=== PATIENT | male | born 1945 | race Caucasian/White ===

== ENCOUNTER → 2020-05-08 12:53 | Outpatient (CLI) | payer MEDICARE, SELFPAY ==
--- NOTE | 2020-05-08 | IMM_PTH ---
PATIENT: ALEJANDRO LYON LOC: [facility] U#:[id number] AGE/SX: 79/M ROOM: RE05/08/[address]: Dr. Carlos White MD : 1945 BED: DIS: SPEC #: [id number] RECD: 05/09/20 12:27 STATUS: CASSANDRA REQ #: [id number] MITESH: 05/08/20 00:[address]: Carlos White DEPT: IMMUNOHISTOCHEMISTRY RECD BY: Tanika Holland ENTERED: 05/09/20 12:28 SP TYPE: IMMUNO OTHR DR: Dr. Marvin Kirk MD Tissues: A - PROSTATE RIGHT B - PROSTATE RIGHT D - PROSTATE LEFT Procedures: 34BE12 (add) P40 (add) 34BE12 (initial) PHYSICIAN & INSTITUTION [place] [id number] SPECIMEN INFORMATION: Tissue Source: A - Right prostate, apex, B - Right prostate, mid, D - Left prostate, apex Clinical Info: Elevated PSA Specimen Number: [id number] A, B & D CPT code: 26079, 85673 x5 METHODOLOGY: Deparaffinized sections of prefer/formalin-fixed tissue or PAP/DQ stained slides are incubated with monoclonal/polyclonal antibodies/oligonucleotide probes. Localization is made via biotin free immunoperoxidase method. Appropriate controls are performed and reacted as expected. Results on target cell population are indicated in the following table: RESULTS: ANTIBODY / CLONE RESULT Block A 34BE12 (34BE12) positive P40 (BC28) positive Block B 34BE12 (34BE12) negative P40 (BC28) negative Block D 34BE12 (34BE12) negative P40 (BC28) negative These tests were developed and their performance characteristics determined by [facility]. They may not have been cleared or approved by the U.S. Food and Drug Administration. The FDA has determined that such clearance or approval is not necessary. The above immunohistochemical/dualISH markers are ordered and reviewed by the Pathologist. INTERPRETATION: A. Right prostate, apex, core biopsy: Benign prostatic tissue. B. Right prostate, mid, core biopsy: Adenocarcinoma. D. Left prostate, apex, core biopsy: Adenocarcinoma. AM:angelica 05/10/2020
--- NOTE | 2020-05-08 08:00 | PROSBIL_PTH ---
PATIENT: ALEJANDRO LYON LOC: [facility] U#:[id number] AGE/SX: 79/M ROOM: RE05/08/[address]: Dr. Carlos White MD : 1945 BED: DIS: SPEC #: [id number] RECD: 05/08/20 12:39 STATUS: CASSANDRA REAshley #: [id number] MITESH: 05/08/20 08:[address]: Carlos White DEPT: SURGICAL PATHOLOGY RECD BY: Moira Servin ENTERED: 05/08/20 13:14 SP TYPE: PROST BX LINDA DR: Dr. Marvin Kirk MD Tissues: A - PROSTATE RIGHT B - PROSTATE RIGHT C - PROSTATE RIGHT D - PROSTATE LEFT E - PROSTATE LEFT F - PROSTATE LEFT Procedures: PROSTATE BX HEADER OPERATION: Prostate biopsy PRE-OP DIAGNOSIS: Elevated PSA TISSUE SUBMITTED: A - Right apex, B - Right mid, C - Right base, D - Left apex, E - Left mid, F - Left base MICROSCOPIC DIAGNOSIS A. Right prostate, apex, core biopsy: Benign prostatic tissue. See comment. B. Right prostate, mid, core biopsy: Adenocarcinoma. Francoise grade: 6 (3+3) Cores involved: 1 out of 2 cores Tissue involved: 1% Greatest tumor length: 1 mm See comment. C. Right prostate, base, core biopsy: Benign prostatic tissue. D. Left prostate, apex, core biopsy: Adenocarcinoma. Kake grade: 7 (3+4) Cores involved: 1 out of 1 core Tissue involved: 30% Greatest tumor length: 2.5 mm See comment. E. Left prostate, mid, core biopsy: Benign prostatic tissue. F. Left prostate, base, core biopsy: Benign prostatic tissue. AM:angelica 05/09/2020 COMMENT A, B & D - Immunohistochemistry ([id number]) supports the above diagnosis. MICROSCOPIC DESCRIPTION Slides are reviewed. GROSS DESCRIPTION A - Received is one container designated prostate, right apex. The specimen consists of one elongated fragment of light ozuna-white soft tissue measuring 1.5 cm in length and 0.1 cm in diameter. The specimen is totally submitted in one cassette. B - Received is one container designated prostate, right mid. The specimen consists of two elongated fragments of light ozuna-white soft tissue each measuring 1 cm in length and 0.1 cm in diameter. The specimen is totally submitted in one cassette. C - Received is one container designated prostate, right base. The specimen consists of two elongated fragments of light ozuna-white soft tissue each measuring 1 cm in length and 0.1 cm in diameter. The specimen is totally submitted in one cassette. D - Received is one container designated prostate, left apex. The specimen consists of one elongated fragment of light ozuna-white soft tissue measuring 1 cm in length and 0.1 cm in diameter. The specimen is totally submitted in one cassette. E - Received is one container designated prostate, left mid. The specimen consists of two elongated fragments of light ozuna-white soft tissue each measuring 1 cm in length and 0.1 cm in diameter. The specimen is totally submitted in one cassette. F - Received is one container designated prostate, left base. The specimen consists of two elongated fragments of light ozuna-white soft tissue each measuring 1.5 cm in length and 0.1 cm in diameter. The specimen is totally submitted in one cassette. / AM:angelica 05/08/20 TC:0 CPT: G0146
== END ==
PROVIDERS: PCP Family Medicine; Referring Provider Urology; Visit Provider Urology
DX: R97.20 Elevated prostate specific antigen [PSA] (principal)
CPT/HCPCS: 88305; 88341; 88342; G0416

== ENCOUNTER 2021-01-30 05:42 | Day surgery (SDC) | payer MEDICARE, SELFPAY ==
--- NOTE | 2021-01-28 10:05 | EKG12_ITS ---
Test Reason : PREOP Blood Pressure : / mmHG Vent. Rate : 075 BPM Atrial Rate : 075 BPM P-R Int : 168 ms QRS Dur : 098 ms QT Int : 404 ms P-R-T Axes : 001 032 054 degrees QTc Int : 451 ms Normal sinus rhythm Normal ECG Confirmed by MITA CHI, DUYEN ([id number]), legal editor ILYA STRATOTN ([id number]) on 01/29/2021 10:04:05 AM Referred By: Carlos White Confirmed By:DUYEN AFN MD
[2021-01-28 10:42] LABS: Hematocrit 43.4 % (40-54); Mean Corp Hgb Conc 34.6 g/dL (32-36); Mean Corpuscular Hgb 29.8 pg (27.0-32.0); Mean Corpuscular Volume 86.3 fL (80-94); Mean Platelet Vol. 10.3 fl (6.2-12.0); Platelet Count 169 K/mm3 (150-450); RBC Distribution Width CV 12.4 % (11.6-14.6); Red Blood Count 5.03 M/mm3 (4.6-6.2); White Blood Count 4.8 K/mm3 (4.4-11.0)
[2021-01-28 11:24] LABS: Anion Gap 5 (5-15); BUN 12 mg/dL (7-18); BUN/Creat Ratio 11.8 RATIO (10-20); Calcium,Total 9.3 mg/dL (8.5-10.1); Chloride 114 mmol/L (98-107); Creatinine, Serum 1.02 mg/dL (0.70-1.30); EST Glomerular Filtration Rate 75 mL/min (>60); Est Glom Filt Rate - Afr Amer 91 mL/min (>60); Glucose 87 mg/dL (74-106); Potassium 4.2 mmol/L (3.5-5.1); Sodium Level 143 mmol/L (136-145)
[2021-01-30] VITALS (17 sets, daily range): BP systolic 121–154; BP diastolic 62–98; PULSE 67–94; RESP 16–18; TEMP 36.1–36.9; O2SAT 92–100; BMI 29.4
[2021-01-30] MEDS: Lactated Ringers 1,000 ML 15 ML IV (06:40)
--- NOTE | 2021-01-30 07:30 | PROST_PTH ---
PATIENT: ALEJANDRO LYON LOC: [facility] [place] U#:[id number] AGE/SX: 75/M ROOM: RE01/30/[address]: Dr. Carlos White MD : 1945 BED: DIS: 01/31/2021 SPEC #: [id number] RECD: 01/30/21 13:01 STATUS: CASSANDRA REAshley #: [id number] MITESH: 01/30/21 07:[address]: Carlos White DEPT: SURGICAL PATHOLOGY RECD BY: Moira Servin ENTERED: 01/31/21 09:19 SP TYPE: PROSTATE OTHR DR: MD Dr. Marvin Pat MD Tissues: A - Soft tissues, NOS B - Lymph node, NOS C - Lymph node, NOS D - Prostate, NOS Procedures: Surgery Specimen Level IV Surgery Specimen Level HEADER OPERATION: Lap robotic radical prostatectomy, nerve monitoring PRE-OP DIAGNOSIS: Prostate cancer TISSUE SUBMITTED: A ? Fat over prostate, B ? Left pelvic lymph node, C ? Right pelvic lymph node, D - Prostate MICROSCOPIC DIAGNOSIS A. Fat over prostate, biopsy: Mature adipose tissue. No evidence of malignancy. B. Left pelvic lymph node, regional lymphadnectomy: One out of one lymph node negative for carcinoma. C. Right pelvic lymph nodes, regional lymphadnectomy: Two out of two lymph nodes negative for carcinoma. D. Prostate, radical prostatectomy: Adenocarcinoma. See cancer synoptic report below. AM:angelica 02/01/2021 COMMENT SYNOPTIC REPORT Procedure: Radical Prostatectomy Prostate Size: 4.4 x 4 x 3 cm Histologic Type: Adenocarcinoma Histologic Grade: 7 Percent of Pattern 4: 25% Percent of Pattern 5: 0% Intraductal Carcinoma: Not identified Tumor Quantitation: 3.5 x 1.9 x 1.7 cm Extraprostatic Extension: Focally suspected Urinary Bladder Neck Invasion: Not identified Seminal Vesicle Invasion: Not identified Lymphvascular Invasion: Not identified Perineural Invasion: Focally present Margins: Free of carcinoma Regional Lymph Nodes: Number of lymph nodes involved by carcinoma: 0 Total number of lymph nodes examined: 3 See specimens A and B. Treatment Effect: Unknown Additional Pathologic Findings: High-grade prostatic intraepithelial neoplasia, chronic inflammation with focal acute inflammation. PATHOLOGIC STAGE: pT2 N0 Mx The above summary is in compliance with [employer] (CAP) Cancer Protocols Checklist and [place] [employer] on Cancer (AJCC), Staging Manual, 8th Ed. Reference is made to the patient's prostate biopsies ([id number]) in which adenocarcinoma was identified. MICROSCOPIC DESCRIPTION Slides are reviewed. GROSS DESCRIPTION A - Received in fixative is one container labeled with the patient's name and designated fat over prostate. The specimen consists of multiple irregular fragments of yellow fatty tissue that in aggregate measure 4.6 x 4.5 x 1 cm. Serial sections do not reveal mass lesions. [facility] Cutter sections are submitted in one cassette. B - Received in fixative is one container labeled with the patient's name and designated left pelvic lymph?node. The specimen consists of an irregular fragment of yellow fatty tissue measuring 4 x 2 x 1 cm. Dissection reveals a single ozuna nodule measuring 2.5 cm in greatest dimension. The nodule is serially sectioned and submitted in cassette 1. The remainder of the tissue is submitted in its entirety in cassette 2. C - Received in fixative is one container labeled with the patient's name and designated right pelvic lymph nodes. The specimen consists of multiple irregular fragments of ozuna-yellow fibrofatty tissue ranging in size from 1 to 5 cm. Serial sections reveal two nodules ranging in size from 0.5 to 2.5 cm. The nodules are submitted in their entirety in cassette 1. The remainder of the specimen is submitted in cassette 2. D - Received in fixative is one container labeled with the patient's name and designated prostate. The specimen consists of prostate with attached right and left seminal vesicles and vas deferens. The specimen measures 7 x 4 x 3 cm. The prostate gland in particular measures 4.5 cm craniocaudally, 4 cm transversely and 3 cm anterior-posteriorly. The specimen weighs 38.7 gm. The prostate is differentially inked as follows: anterior - red, posterior - black, right half - blue, left half - green. The prostate gland is cut from apex to base at approximately 3-4 mm sections. No distinct mass lesion is identified. Pav[facility] Cutter sections are submitted as follows: 1 ? apex, shave, 2 - bladder neck shave, 3 & 4 ? right and left seminal vesicles, 4 & 5 ? most basal section of prostate, 6 & 7 ?apex, 8-13 - mid portion of prostate, 14-170 - basal portion of prostate. Approximately 99% of the tissue is submitted for microscopic evaluation. / AM:angelica 01/31/21 TC:0 CPT: 55098 x3, 21721
--- NOTE | 2021-01-30 07:35 | PCM.HP.STD ---
HPI - General HPI Narrative ALEJANDRO LYON, is a 75 M who presents with a radical prostatectomy history of frequency urgency incontinence and prostate cancer we plan to proceed with a radical robotic prostatectomy suspension of the urethra and organ to do nerve monitoring during the case to spare the nerves as best as possible for his bladder control will take out the lymph nodes as well. FORMERLY [facility], [facility] Medical History (Updated 01/30/21 @ 07:[address] Carlos White MD) Arthritis Cancer Former smoker Gastric reflux High cholesterol History of diverticulitis History of renal disease History of stress test History of trauma Hypertension Prostate disease Restless legs Wears glasses Wears hearing aid Wears partial dentures Home Medications levothyroxine 150 mcg PO DAILY 01/25/21 [History Last Taken 01/30/21 03:15] losartan 100 mg PO DAILY 01/25/21 [History Last Taken 01/30/21 03:15] lovastatin 40 mg PO DAILY 01/25/21 [History Last Taken 01/29/21] omeprazole 40 mg PO DAILY 01/25/21 [History Last Taken 01/29/21] ciprofloxacin HCl [Cipro] 500 mg PO BID #20 tab 01/30/21 [Rx Last Taken Unknown] oxycodone-acetaminophen 1 tab PO Q6H PRN 7 Days #14 tab 01/30/21 [Rx Last Taken Unknown] Allergy/AdvReac Type Severity Reaction Status Date / Time No Known Allergies Allergy Verified 01/30/21 06:11 Family History (Updated 01/30/21 @ 07:[address] Carlos White MD) Other Prostate disease Surgical History (Updated 01/25/21 @ 13:00 by Jacqueline Hayes) History of appendectomy History of arthroscopy of knee History of cardiac catheterization History of thyroidectomy Social History Smoking Status: Former smoker Vital Signs Vital Signs Vital Signs: 01/30/21 06:14 01/30/21 06:16 Temperature 97.7 F L Temperature Source Temporal Pulse Rate 73 Respiratory Rate 18 Respiratory Pattern Normal Blood Pressure 122/75 H Blood Pressure Mean 90 Blood Pressure Source Monitor Blood Pressure Position Semi-Fowlers Blood Pressure Location Right Arm Pulse Ox 100 Oxygen Delivery Method Room Air Weight Weight: 93 kg Body Mass Index (BMI) 29.4 Results Lab / Micro Data Result Diagrams: 01/28/21 09:47 01/28/21 09:47
--- NOTE | 2021-01-30 07:37 | DCINST_ITS ---
Discharge Instructions Diet Discharge Diet: Light diet - advance as tolerated and Soft diet Activity Discharge Activity: May Not Drive (while taking narcotic pain medications.) Lifting Restrictions: No Lifting at all Additional Activity Instructions:: okay to shower Dressing / Incision Call your doctor if you observe: Fever of 101 or Higher Catheter: Manley to leg bag and Manley to large bag Drain: [place] Follow Up Care Please Follow Up With: Carlos White MD When: Call [phone] for an appointment Test Results: Test results from this visit will be discussed in further detail at your follow-up appointment, if applicable. Discharge Plan Admission Primary Reason for Your Visit: Radical Prostatectomy Attending Provider: Carlos White Primary Care Provider: Marvin Kirk Consulting Providers: Mark Parks Discharge Orders/Prescriptions Prescriptions: New ciprofloxacin HCl [Cipro] 500 mg tablet 500 mg PO BID Qty: 20 RF: 0 oxycodone-acetaminophen 5-325 mg tablet 1 tab PO Q6H PRN (Reason: pain) 7 Days Qty: 14 RF: 0 Continued lovastatin 40 mg tablet 40 mg PO DAILY RF: 0 omeprazole 40 mg capsule,delayed release(DR/EC) 40 mg PO DAILY RF: 0 levothyroxine 150 mcg tablet 150 mcg PO DAILY RF: 0 losartan 100 mg tablet 100 mg PO DAILY RF: 0 Discontinued tamsulosin 0.4 mg capsule 0.4 mg PO DAILY RF: 0 finasteride 5 mg tablet 5 mg PO DAILY RF: 0 Other Ambulatory Orders: 12 Lead EKG (Routine) Timeframe: 20210128 Location: None Selected Ordered By: Dr. Mark Parks Referrals / Follow Up: Carlos White MD [STAFF PHYSICIAN] - Marvin Kirk MD [Primary Care Provider] - Disposition Disposition (needs filled in before D/C Order can be placed): Home, Self Care
[2021-01-30] MEDS: Cefazolin 2 GM in 0.9% Normal Saline 100 ML IV (07:38)
[2021-01-30] MEDS: Bupivacaine Mpf 0.5% 30 ML VIAL (08:40)
--- NOTE | 2021-01-30 11:34 | PCM.OPRPT ---
Report of Operation Date of Procedure: 01/30/21 Pre-Operative Diagnosis: Prostate cancer, frequency and urgency, stress incontinence Post-Operative Diagnosis: Same Surgery/Procedure Performed:: Laparoscopic robotic assisted radical prostatectomy, bilateral pelvic lymph node dissection complete, EMG monitoring of the urethral sphincter and pelvic nerves, suture suspension of the urethra. Description of Surgical Findings:: Patient was taken back to the operating room after smooth induction of general anesthesia he was placed in dorsolithotomy position. The urethra and abdomen were prepped and draped in usual sterile fashion. He had a prior lower appendix incision had a incision above the umbilicus I made a small little incision next the umbilicus the abdomen was prepped and draped, I then used a Veress needle to enter the peritoneal cavity and filled the peritoneal Cavity with CO2 gas. I then placed a 8 mm camera trocar into the umbilicus I placed the right camera trocar into left trochars for the robotic arm we then placed an air seal port and a 5 mm suction port. The robot was then docked we are using the X I da Freda robot, then proceeded with the initial dissection I freed up some adhesions from her prior surgery in the left lower quadrant and right lower quadrant released the colon off the lateral wall I was then able to retract the colon out of the pelvis I then went down below the bladder and incised the peritoneum followed the vas deferens on the right side all the way down to the prostate Tisit dissected out the right vas deferens and right seminal vesicle, then dissected out the left vas deferens and left seminal vesicles I then began he go below the prostate and dissected out the space below the prostate to the apex I then pulled out of the pelvis we then dropped the bladder and opened up the space of Retzius used a fourth arm to retract the bladder I then went to the right side and the pelvic lymph nodes were identified in the obturator space we identified the lateral wall the iliac artery and vessel the pelvic sidewall the clerk operator nerve and then all the lymphatic tissue in that space was then completely dissected out we used generous clips to control bleeding the lymphatic tissue was and lymph nodes were sent off as a specimen, I then went to the left side performed a left complete lymph node dissection on the left side dissected out the lymph nodes off the lateral sidewall off the left iliac artery and vein and clerk operator nerve was identified again after dissecting all the lymph nodes off this side then we went to the prostate incised the endopelvic fascia retracted prostate laterally freed up the prostate from the endopelvic fascia laterally on the right side and the left side I then went to the apex we placed stitch in the dorsal vein complex we then came back to the bladder neck and incised open the bladder from the prostate dissecting down to the urethra the balloon was then deflated and the urethra and then we dissected below the prostate I then retracted the prostate laterally incised the fascia on top of the prostate sweeping off the fascia and then sweeping and identifying the neurovascular bundle we then used the EMG electrode this was introduced into the abdomen using the kit and the electrode was then placed in the lateral pelvic wall region then checked for action potential stimulation we identify the exponential stimulation identified the nerve track along the lateral wall of the pelvis from the deep pelvis did narrow pelvis once the tract was identified then we continue with the dissection on the right side we released the neurovascular bundles we took the pedicles with clips we elevated the prostate off the neurovascular bundle we again were checking the EMG electrode during the entire dissection to make sure that there was no injury to the nerves and during the entire dissection the electrode was firing and good action potential was identified assuring that the nerves were not injured, I then went to the left side and we incised the endopelvic fascia in the left side we took the pedicle of the left side we freed up the neurovascular bundle off the left side of the prostate we then identified the nerve bundle and use the electrode to the point identify the action potential of the nerve bundle on the left side and as we are dissecting we are checking the nerve bundle the entire time at the end of dissection there was a good action potential and we have spare the nerves in the left side as there was a good action potential using the StudyCloudep nerve monitoring system. We then came to the apex we dissected the apex free we transected to the prostate and the urethra the catheter was then pulled back the prostate was then put in Endo Catch bag we then proceeded with suspending the urethra with stitches the urethra was suspended to help with incontinence and stress incontinence we then proceeded with the anastomosis of the bladder neck to the urethra using fluoroscopy V-Loc stitch in a running fashion we did an anastomosis between the bladder neck and the urethra that had been suspended with the suture suspension. Then catheter was put in we inflated the catheter flush the bladder we then undocked the robot we extracted the prostate through the umbilical port and all the ports were then removed and then closed with stitches patient's anesthetic was reversed there was minimal blood loss all the needles were and sponges were accounted for I then spoke to the patient's family and the patient is currently is being extubated from his anesthesia Surgeon: benito Type of Anesthesia: General Drains: [address] Admit VTE Documentation VTE Present on Admission: No VTE Mechan Device Prophylaxis: SCD's
--- NOTE | 2021-01-30 12:10 | SUR.PHASEI ---
Pt restless and thrashing in bed stating repeatedly I have to pee Pt provided education on trent catheter and reassurance provided. Pt asking for pain medication stating I hurt down there, pt unable to provide location, description or number 0-10 for pain. This RN administering dilaudid per Anesthesia order form when pt threw arm up against bed causing Dilaudid syringe plunger to break off of syringe, Dilaudid then spilling on to bed sheets unable to determine how much medication was administered. Feliz Kulkarni, RN is bedside and shown wasting of dilaudid on bed sheet.
[2021-01-30] MEDS: Ketorolac 30 MG/ML Syringe IV (13:00)
[2021-01-30] MEDS: Acetaminophen 500 MG Tablet PO ×2 (14:59→18:00)
[2021-01-30] MEDS: Lactated Ringers 1,000 ML 125 ML IV (18:00)
[2021-01-30] MEDS: Ibuprofen 600 MG Tablet PO ×2 (18:00→23:53)
[2021-01-30] MEDS: Pantoprazole Sodium 40 MG Tablet PO (19:58)
[2021-01-30] MEDS: Atorvastatin Calcium 10 MG Tablet PO (19:58)
[2021-01-31] MEDS: Lactated Ringers 1,000 ML 125 ML IV (01:12)
[2021-01-31] MEDS: Ibuprofen 600 MG Tablet PO (06:26)
[2021-01-31] MEDS: Levothyroxine 150 MCG Tablet PO (06:26)
[2021-01-31 06:28] VITALS: BP 122/65; PULSE 65; RESP 18; TEMP 36.8; O2SAT 97; BMI 29.4
[2021-01-31 08:43] VITALS: BP 129/79; PULSE 70; RESP 16; TEMP 36.6; O2SAT 97
[2021-01-31] MEDS: Losartan Potassium 100 MG Tablet PO (09:48)
== END 2021-01-31 11:03 | disposition home or self-care (01) ==
LOC: SDC 05:45 → AC 07:32 → MS3 01-31 08:53 → AC 01-31 09:31 → MS3 01-31 09:31
PROVIDERS: Anesthesiology; PCP Family Medicine; Referring Provider Urology; Visit Provider Urology
PROC: 0VT04ZZ Resection of Prostate, Percutaneous Endoscopic Approach (ICD-10-PCS; CPT 55866; principal; 2021-01-30 07:10)
DX: N40.1 Benign prostatic hyperplasia with lower urinary tract symptoms (principal); N13.8 Other obstructive and reflux uropathy; N39.46 Mixed incontinence; R35.0 Frequency of micturition; R35.1 Nocturia; C61 Malignant neoplasm of prostate; I10 Essential (primary) hypertension; K21.9 Gastro-esophageal reflux disease without esophagitis; E78.00 Pure hypercholesterolemia, unspecified; E03.9 Hypothyroidism, unspecified; M19.90 Unspecified osteoarthritis, unspecified site; Z79.899 Other long term (current) drug therapy; Z87.891 Personal history of nicotine dependence
CPT/HCPCS: 00865; 38571; 51784; 51990; 55866; 36415; 80048; 84443; 85027; 86850; 86900; 86901; 88305; 88309; 93005; J7120; J2405

== ENCOUNTER → 2021-06-14 | Outpatient (CLI) | payer MEDICARE, SELFPAY ==
--- NOTE | 2021-06-14 06:23 | ECHOD_ITS ---
Version 2 Reason For Study: Chest pain Procedure This was a 2D Doppler, Color Flow transthoracic echocardiogram. The study was technically difficult. Exam performed in department. Left Ventricle Normal LV size. Mild concentric left ventricular hypertrophy. Left ventricular systolic function is normal. The estimated ejection fraction is 65 %. Diastolic function is indeterminate. No regional wall motion abnormalities noted. Right Ventricle Normal RV size. Normal systolic function. Atria The left atrium is mildly enlarged. Normal right atrium. No doppler evidence for ASD. Bubble contrast study negative for right to left interatrial shunt. Mitral Valve There is no mitral annular calcification. Normal mitral valve. Trivial mitral valve insufficiency. Tricuspid Valve Normal tricuspid valve. Mild tricuspid valve insufficiency. Unable to estimate RV systolic pressure/pulmonary artery pressure due to technically difficult study. Aortic Valve Trisinus/trileaflet aortic valve. Mild focal aortic valve calcification. Pulmonic Valve The pulmonic valve is not well visualized. Trivial pulmonic valve insufficiency. Great Vessels Normal sized aortic root. Pericardium/Pleural No pericardial effusion. Medication Performed a rapid injection of agitated mix of 9 cc saline and 1cc air to assess for atrial septal defect. MMode/2D Measurements & Calculations LVIDd: 3.2 cm IVSd: 1.4 cm Ao root diam: 3.3 cm LVIDs: 1.5 cm LVPWd: 1.3 cm FS: 53.7 % LAV(MOD-bp): 54.6 ml LVAd ap4: 25.0 cm2 LVAd ap2: 27.0 cm2 LAV(MOD-bp) Indexed: 26.0 ml/m2 LVLd ap4: 7.9 cm LVLd ap2: 8.3 cm LAV(MOD-sp2): 41.6 ml EDV(MOD-sp4): 67.2 ml EDV(MOD-sp2): 73.1 ml LAV(MOD-sp4): 69.3 ml EDV(sp4-el): 67.2 ml EDV(sp2-el): 74.4 ml LVAs ap4: 13.8 cm2 LVAs ap2: 15.0 cm2 LVLs ap4: 6.8 cm LVLs ap2: 7.4 cm ESV(MOD-sp4): 25.1 ml ESV(MOD-sp2): 25.7 ml ESV(sp4-el): 23.7 ml ESV(sp2-el): 25.6 ml EF(MOD-sp4): 62.7 % EF(MOD-sp2): 64.9 % EF(sp4-el): 64.7 % SV(MOD-sp4): 42.1 ml SV(MOD-sp2): 47.5 ml SV(sp4-el): 43.4 ml LA A4 area: 20.9 cm2 LA dimension(2D): 3.9 cm RA A4 area: 8.9 cm2 Doppler Measurements & Calculations MV E max paul: 51.0 cm/sec Lat Peak E' Paul: 6.0 cm/sec Med Peak E' Paul: 4.5 cm/sec MV A max paul: 63.9 cm/sec E/E' lat: 8.5 E/E' med: 11.4 MV E/A: 0.80 Ao V2 max: 107.7 cm/sec PA V2 max: 118.3 cm/sec Ao max P.6 mmHg ECHO/Echo Complete Interpretation Summary The study was technically difficult. Left ventricular systolic function is normal. The estimated ejection fraction is 65 %. Mild concentric left ventricular hypertrophy. The left atrium is mildly enlarged. Trivial mitral valve insufficiency. Mild tricuspid valve insufficiency. Mild focal aortic valve calcification. Trivial pulmonic valve insufficiency. Unable to estimate RV systolic pressure/pulmonary artery pressure due to techni maia difficult study. Diastolic function is indeterminate. Bubble contrast study negative for right to left interatrial shunt. Ordering Physician: Tyshawn Figueroa Referring Physician: MD Marvin Florence Performed By: Ayla Kaur, [place]
--- NOTE | 2021-06-14 08:14 | STRESSREP ---
Stress Test Report Date: 06-14-2021 Procedure: Exercise tolerance test Indications: Chest pain Consent: Per the patient Procedure: The patient exercised on a Aiden protocol for 6 minutes completing Stage II achieving a peak heart rate of 127 bpm (88% predicted maximal heart rate) with a peak blood pressure 198/70 mmHg and a peak MET capacity of approximately 7 MET's. The baseline ECG demonstrated normal sinus rhythm. The peak exercise ECG demonstrated no obvious ECG changes. There were no cardiac dysrhythmias pretest, during exercise, or recovery. The functional capacity was considered good. The patient had left-sided chest pain/discomfort chest discomfort during exercise with spontaneous resolution in recovery. The examination was discontinued secondary to chest discomfort. Impression: 1. Technically adequate (percent predicted maximal heart rate greater than 85%) exercise tolerance test 2. Peak exercise ECG with no obvious ECG changes 3. There were no cardiac dysrhythmias during exercise or recovery 4. Nuclear images pending Myocardial perfusion imaging study: Technique: The patient was injected with 14.6 mCi of technetium 99m Cardiolite and subsequently rest SPECT Cardiolite nuclear imaging was obtained in the horizontal long, vertical long, and short axis views. The patient exercised on a Aiden protocol for 6 minutes completing Stage II achieving a peak heart rate of 127 bpm (88% predicted maximal heart rate) with a peak blood pressure 198/70 mmHg and a peak MET capacity of approximately 7 MET's. The patient was injected with 44.6 mCi of technetium 99m Cardiolite and subsequently stress SPECT Cardiolite nuclear imaging was obtained in the horizontal long, vertical long, and short axis views. A gated Cardiolite study at peak stress was obtained. Interpretation: Rest and stress SPECT Cardiolite nuclear imaging status post realignment, normalization, and attenuation correction, demonstrates the appearance of relative uniform tracer uptake and myocardial perfusion appearing within normal limits. There is end systolic thickening and brightening. The gated Cardiolite study demonstrates myocardial thickening and inward wall motion. The reported LVEF is 73%. Impression: 1. Rest and stress SPECT Cardiolite nuclear imaging demonstrate relative uniform tracer uptake and myocardial perfusion appearing within normal limits. 2. The gated Cardiolite study reports an LVEF of 73%. This note was generated with [employer] software. It may contain incorrect words, spelling, and punctuation that were not noted in checking the note before signing.
== END | disposition home or self-care (01) ==
LOC: CVS 06:19
PROVIDERS: PCP Family Medicine; Referring Provider Internal Medicine Cardiovascular Disease; Visit Provider Internal Medicine Cardiovascular Disease
DX: R07.9 Chest pain, unspecified (principal); E78.00 Pure hypercholesterolemia, unspecified; I10 Essential (primary) hypertension
CPT/HCPCS: 78452; 93017; 93306; A9500; A4216

== ENCOUNTER → 2021-07-02 | Outpatient (CLI) | payer MEDICARE, SELFPAY ==
--- NOTE | 2021-07-02 09:33 | PFTCOMP_ITS ---
COMPLETE PULMONARY FUNCTION TEST INTERPRETATION Brief HPI: Patient is a 75 year old male, currently under the care of Marvin Lopez, who presents to [facility] for complete pulmonary function tests secondary to diagnosis of dyspnea. Respiratory therapist reports good effort and reproducible results. Interpretation: Forced expiration spirometry shows no large airways obstructive ventilatory defect with an FEV1 of 95% predicted. There is no significant bronchodilator response by strict ATS criteria. Spirograms are of good quality and plateau normally. The respiratory flow volume loop shows a normal pattern. Lung volumes by body plethysmography show a normal total lung capacity at 5.54 L, 90% predicted. All other lung volumes are within normal limits. Diffusion capacity by carbon monoxide is normal at 91% predicted. The airway resistance is normal. No previous pulmonary function tests were available for review. Impression: These pulmonary function tests are grossly within normal limits and do not explain patient's dyspnea.
== END | disposition home or self-care (01) ==
LOC: PSN 08:20
PROVIDERS: PCP Family Medicine; Visit Provider Nurse Practitioner Family
DX: R06.00 Dyspnea, unspecified (principal)
CPT/HCPCS: 94060; 94726; 94729